=== PATIENT | male | born 1955 | race Caucasian/White ===

== ENCOUNTER → 2021-01-02 | Day surgery (SDC) | payer OTHER ==
[~2021-01-02] MED LIST: AMLODIPINE BESY10 MG PO; AZELASTINE137 MCG/0.; AZELASTINE205.5 MCG/; CETIRIZINE HCL10 MG PO; CLARITIN10 MG PO; FLEXERIL10 MG PO; LIPITOR 10MG TA10 MG PO; LYRICA 50MG CAP50 MG PO; MELOXICAM15 MG PO; MOBIC15 MG PO; MONTELUKAST SOD10 MG PO; NORVASC5 MG PO; OMEPRAZOLE40 MG PO; PRILOSEC20 MG PO; PRINIVIL10 MG PO; PROTONIX 40MG T40 MG PO; SYMBICORT 16010.2 GM INH
[2021-01-02 09:21] LABS: HCT 50.2 % (42.0-52.0); MCH 32.3 pg (25.0-31.0); MCHC 34.9 g/dL (32.0-36.0); MCV 92.8 fL (78.0-100.0); MPV 10.2 fL (6.0-9.5); RBC 5.41 M/uL (4.70-6.00); RDW 13.3 % (11.5-14.0); WBC 11.2 K/uL (4.0-10.5)
[2021-01-02 09:34] LABS: HGB 17.5 g/dl (13.2-18.0)
[2021-01-02 09:59] LABS: ALBUMIN 3.4 g/dL (3.4-5.0); BILIRUBIN - TOTAL 0.6 mg/dL (0.2-1.0); BUN/CREAT RATIO (CALC) 13.3 RATIO; CREATININE 1.2 mg/dL (0.67-1.17); GLOBULIN (CALCULATION) 3.1 g/dL; POTASSIUM 3.9 mmol/L (3.5-5.1); TOTAL PROTEIN 6.5 g/dL (6.4-8.2)
== END | disposition home or self-care (01) ==
LOC: FAS 07:57
PROVIDERS: Surgery
DX: K22.2 Esophageal obstruction (principal); K21.00 Gastro-esophageal reflux disease with esophagitis, without bleeding; K58.9 Irritable bowel syndrome, unspecified; K31.9 Disease of stomach and duodenum, unspecified; M19.90 Unspecified osteoarthritis, unspecified site; J44.9 Chronic obstructive pulmonary disease, unspecified; I10 Essential (primary) hypertension; E78.00 Pure hypercholesterolemia, unspecified; F17.210 Nicotine dependence, cigarettes, uncomplicated; R91.1 Solitary pulmonary nodule; Z72.0 Tobacco use; Z88.5 Allergy status to narcotic agent; Z88.1 Allergy status to other antibiotic agents; Z91.041 Radiographic dye allergy status; Z20.822 Contact with and (suspected) exposure to COVID-19; Z79.899 Other long term (current) drug therapy; Z98.890 Other specified postprocedural states; Z82.49 Family history of ischemic heart disease and other diseases of the circulatory system
CPT/HCPCS: 36415; 80053; C1726; J1610; J7120

== ENCOUNTER 2021-10-14 07:43 | Emergency (ER) | payer OTHER ==
[2021-10-14 10:00] LABS: BASOPHIL 0.7 % (0-2); EOSINOPHIL 1.6 % (0-7); HCT 49.3 % (42.0-52.0); HGB 16.7 g/dl (13.2-18.0); LYMPHOCYTE 22.6 % (15-48); MCH 31.6 pg (25.0-31.0); MCHC 33.9 g/dL (32.0-36.0); MCV 93.4 fL (78.0-100.0); MONOCYTE 5.6 % (0-12); MPV 9.6 fL (6.0-9.5); NEUTROPHIL 69.2 % (41-80); NRBC 0; PLT 209 K/uL (150-400); RBC 5.28 M/uL (4.70-6.00); RDW 13.2 % (11.5-14.0); WBC 10.8 K/uL (4.0-10.5)
[2021-10-14 10:19] LABS: ALBUMIN 3.8 g/dL (3.4-5.0); BILIRUBIN - TOTAL 0.4 mg/dL (0.2-1.0); BUN/CREAT RATIO (CALC) 17.4 RATIO; CREATININE 1.21 mg/dL (0.67-1.17); GLOBULIN (CALCULATION) 3.4 g/dL; POTASSIUM 4.3 mmol/L (3.5-5.1); TOTAL PROTEIN 7.2 g/dL (6.4-8.2)
[2021-10-14] MEDS ORDERED: MEDROL 4MG DOSEP4 MG PO (12:54)
[2021-10-14] MEDS ORDERED: AUGMENTIN 875-1 EACH PO (12:54)
== END 2021-10-14 13:22 | disposition home or self-care (01) ==
LOC: FER 07:43
PROVIDERS: Emergency Medicine
DX: J06.9 Acute upper respiratory infection, unspecified (principal); J44.9 Chronic obstructive pulmonary disease, unspecified; I10 Essential (primary) hypertension; Z20.822 Contact with and (suspected) exposure to COVID-19; Z88.5 Allergy status to narcotic agent; Z91.041 Radiographic dye allergy status
CPT/HCPCS: 36415; 71045; 80053; 83605; 83880; 84145; 84484; 85025; 85379; 87040; J1100; U0002